=== PATIENT | female | born 1995 | race Caucasian/White ===

== ENCOUNTER 2017-01-02 00:15 | Outpatient (CLI) | payer MEDICAID | END 2017-01-02 02:00 | disposition home or self-care (01) | LOC: 2LDRP 00:15 → BC 00:15 | DX: O99.89 Other specified diseases and conditions complicating pregnancy, childbirth and the puerperium (principal); M54.9 Dorsalgia, unspecified; Z3A.28 28 weeks gestation of pregnancy ==